=== PATIENT | male | born 1960 | race Caucasian/White ===

== ENCOUNTER 2018-03-18 05:30 | Inpatient (IN) | payer OTHER ==
[2018-03-12 09:13] LABS: HEMOGLOBIN 14.6 gm/dL (14.0-18.0); MCH 31.1 pg (26.0-34.0); MCHC 34.9 g/dL (28.0-37.0); MCV 89.1 fL (80.0-100.0); RBC 4.71 mil/uL (4.50-6.00); RDW 12.4 % (10.5-14.5); WBC 4.7 thou/uL (4.0-11.0)
[2018-03-12 09:24] LABS: ALBUMIN 4.5 g/dL (3.4-5.0); CALCIUM 9.7 mg/dL (8.5-10.1); CREATININE 0.9 mg/dL (0.7-1.3); POTASSIUM 3.9 mmol/L (3.5-5.1)
[2018-03-12 09:26] LABS: PROTIME 10.5 Seconds (9.3-11.4)
[2018-03-12 09:40] LABS: URINE BILIRUBIN NEGATIVE (Negative); URINE BLOOD NEGATIVE (Negative); URINE CLARITY CLEAR; URINE COLOR YELLOW; URINE GLUCOSE-RANDOM* NEGATIVE (Negative); URINE KETONES NEGATIVE (Negative); URINE LEUKOCYTES-REFLEX NEGATIVE (Negative); URINE NITRITE-REFLEX NEGATIVE (Negative); URINE PROTEIN (DIPSTICK) NEGATIVE (Negative); URINE UROBILINOGEN 0.2 E.U./dl (0.2-1.0)
[~2018-03-18] VITALS: Ht 172.7 cm; Wt 79.4 kg
[2018-03-18] VITALS (8 sets, daily range): BP systolic 102–131; BP diastolic 51–82
--- NOTE | ~2018-03-18 | D ---
[facility] [place] [address] DISCHARGE SUMMARY Name: CHARLES GARCIA Room #: 408-P [facility] IN ..#: [id number] Admission: 03/18/18 Attend Phys: Charles Pena MD Discharge: 03/20/18 Date of : 60 Report #: [id number] THIS REPORT FOR: //name// CC: LIN Pena [facility] unknown DATE OF SERVICE: 03/21/2018 ANTICIPATED DATE OF DISCHARGE: 03/21/2018 FINAL DIAGNOSIS: Osteoarthritis of left hip with a total hip arthroplasty. OPERATION PROCEDURES: Left total hip arthroplasty. HISTORY: This slender, fit, active 57-year-old gentleman has evidence of avascular necrosis and degenerative arthritis involving the left hip. We have elected to go ahead with left total hip arthroplasty. HOSPITAL COURSE: He was admitted and taken to the operating room on 03/18/2018. He underwent left total hip arthroplasty, which he tolerated well. Postoperatively, his course has been largely unremarkable. He has had some problems with nausea and also moderate difficulty with pain management. We have had him on oxycodone which is helpful for pain, but I believe aggravates his nausea to some extent. We are trying to taper down to hydrocodone today. He has been able to tolerate a regular diet. He has started with physical therapy and is making progress. He is not yet fully independent, but I am expecting good progress today. Pending this, he states he is anxious to go home today if he feels safe and independent. If he is not quite there with regard to nausea or pain control or physical therapy, then we will plan to keep him one more night and plan discharge tomorrow. DISCHARGE MEDICATIONS: Include Bystolic 2.5 mg daily, Tambocor 50 mg daily, Imitrex 50 mg p.r.n. migraine headaches, Xarelto 10 mg daily, oxycodone 10 mg q. 4-6 hours p.r.n. severe pain, hydrocodone 10 mg q. 4-6 hours p.r.n. for ohhj-kz-sfhrelmx pain and Zofran 4 mg q. 6 hours p.r.n. for nausea. He will continue an independent exercise program and a regular diet at home. I have asked him to call me should there be any problems or questions. We can certainly delay his discharge for another 24 hours. <ELECTRONICALLY SIGNED> By: Charles Pena MD 03/22/18 0712 [id number] Charles Pena MD /nt
--- NOTE | ~2018-03-18 | O ---
[facility] [place] [address] OPERATIVE REPORT Name: GENEVA GARCIA Room #: 408-P [facility] IN ..#: [id number] Admission: 03/18/18 Attend Phys: Geneva Pena MD Discharge: Date of : 60 Report #: [id number] THIS REPORT FOR: //name// CC: LIN Pena [facility] unknown DATE OF SERVICE: 03/18/2018 PREOPERATIVE DIAGNOSES: Avascular necrosis and end-stage degenerative arthritis, left hip. POSTOPERATIVE DIAGNOSES: Avascular necrosis and end-stage degenerative arthritis, left hip. PROCEDURE: Left total hip arthroplasty. INDICATIONS: This slender, active, fit 57-year-old gentleman has developed apparent AVN and secondary degenerative arthritis involving the left hip. He has tried conservative measures without benefit. He now has significant joint space narrowing and deformity of the femoral head and has elected to go ahead with total hip arthroplasty. DESCRIPTION OF PROCEDURE: The patient was taken to the operating room where he was placed under general anesthesia. Prophylactic intravenous antibiotics were administered. He was turned to the right lateral decubitus position. The left hip, thigh and leg were meticulously prepped and draped. A slightly curving posterolateral skin incision was made centered over the greater trochanter. This was carried through subcutaneous tissues and fascia. The posterior aspect of the hip joint was visualized, and the short external rotators were taken down and tagged with several #1 Tevdek sutures. The capsule was also preserved and tagged. The hip was dislocated. Marked deformity and degenerative change on the femoral head was noted. A femoral neck osteotomy was performed. The canal was then opened with reamers and hand broaches. The Thompson and Nephew hip system was utilized, and a size 13 femoral component using the Synergy porous component fit nicely. The calcar was trimmed down to an appropriate level. The trial broach was removed and attention directed to the acetabulum. The acetabulum was sequentially reamed, gradually advancing to a 52 mm reamer. A 52 mm 3-hole hemispherical StikTite shell was then inserted. This was placed in alignment with his true acetabulum, which positioned this in about 20 degrees of anteversion and about 45 degrees off vertical. The shell was impacted into position, and it seated nicely and appeared to be secure. In addition, 2 cancellous screws were placed through the apex of the shell, engaging good periacetabular bone adding to secure fixation. A 36-mm polyethylene insert was then placed using the 20-degree elevated rim component. This was positioned with the elevated rim at about the 10-11 o'clock posterior position. It seated [address] [address] OPERATIVE REPORT Name: GENEVA GARCIA Room #: 408-P [facility] IN ..#: [id number] Admission: 03/18/18 Attend Phys: Geneva Pena MD Discharge: Date of : 60 Report #: [id number] nicely and appeared to be secure. The permanent Thompson and Nephew Synergy porous high offset femoral component was then inserted. This was impacted into the canal in about 15-20 degrees of anteversion. It seated nicely and appeared to be secure. A +4 mm head was inserted as the trial reduction with this component seemed to be satisfactory with good amish of leg length and good range of motion and stability. The permanent head was selected using the Oxinium 36 mm x +4 mm neck length head. This was impacted on the Thorne taper and seated nicely, and the hip was reduced. Range of motion, alignment and stability were once again assessed and felt to be satisfactory. Leg length was symmetric with the opposite side. The wound was copiously irrigated. Good hemostasis was established. The short external rotators were reattached to the bone of the greater trochanter using the #1 Tevdek sutures passed through small drill holes in the greater trochanter. During this process, one of the small drill bits broke leaving a small tip of the drill bit in the trochanter. This was buried within the bone and could not be palpated on either side. I attempted to curette the area open and remove the small fractured tip, but felt this would probably cause more damage to the trochanter than benefit. Therefore, this small fragment of drill tip was left in place. The sutures were tied down, and this resulted in excellent additional stability of the hip. Range of motion was once again assessed and felt to be satisfactory. A single Hemovac was left the wound exiting through a separate stab incision. The fascia was then closed with multiple #1 Vicryl sutures. The subcutaneous tissues were closed with 0 Monocryl. The skin was closed with skin wm. A sterile dressing was applied. The patient was awakened and returned to recovery room in good condition. Estimated blood loss was 50 mL. <ELECTRONICALLY SIGNED> By: Geneva Pena MD 03/19/18 [id number] Geneva Pena MD /nt
[~2018-03-18 05:30] MED LIST: ASPIR 8181 M1 PO; BYSTOLIC2.5 MG PO; CENTRUM SILVER1 EAC2 PO; FLECAINIDE ACET50 M1 PO; IBUPROFEN 800800 M1 PO; IMITREX 50 MG T50 MG PO
[2018-03-19] VITALS: BP 131/66
[2018-03-19 03:24] VITALS: BP 121/65
[2018-03-19 04:54] LABS: HEMATOCRIT 34.7 % (42.0-52.0); HEMOGLOBIN 12.2 gm/dL (14.0-18.0); MCH 31.1 pg (26.0-34.0); RBC 3.9 mil/uL (4.50-6.00); RDW 12.7 % (10.5-14.5); WBC 10.5 thou/uL (4.0-11.0)
[2018-03-19 08:10] VITALS: BP 116/53
[2018-03-19 15:24] VITALS: BP 103/57
[2018-03-19 19:17] VITALS: BP 103/57
[2018-03-19 20:00] VITALS: BP 112/52
[2018-03-20 03:36] VITALS: BP 110/55
[2018-03-20 05:52] LABS: HEMATOCRIT 33.4 % (42.0-52.0); HEMOGLOBIN 11.6 gm/dL (14.0-18.0); MCH 31.4 pg (26.0-34.0); MCHC 34.7 g/dL (28.0-37.0); MCV 90.3 fL (80.0-100.0); RBC 3.7 mil/uL (4.50-6.00); RDW 12.8 % (10.5-14.5); WBC 8.1 thou/uL (4.0-11.0)
[2018-03-20 07:35] VITALS: BP 108/54
[2018-03-20 10:16] VITALS: BP 103/57
[2018-03-20 11:40] VITALS: BP 103/57
[2018-03-20 13:06] VITALS: BP 103/57
== END 2018-03-20 13:58 | disposition home health service (06) | DRG 470 ==
LOC: TBA 05:30 → 4N 05:30 → PRE 05:36 → 4N 10:52 → PRE 11:03 → ENTRNSPT 03-20 13:44 → EDTRNSPTSTS 03-20 13:45 → 4N 03-20 13:58
PROVIDERS: Orthopaedic Surgery
PROC: 0SRB06Z Replacement of Left Hip Joint with Oxidized Zirconium on Polyethylene Synthetic Substitute, Open Approach (ICD-10-PCS; principal; 2018-03-18)
DX: M16.12 Unilateral primary osteoarthritis, left hip (principal); M87.852 Other osteonecrosis, left femur; I48.91 Unspecified atrial fibrillation; G43.909 Migraine, unspecified, not intractable, without status migrainosus; E78.5 Hyperlipidemia, unspecified; Z79.899 Other long term (current) drug therapy
CPT/HCPCS: 10790; 50010; 50101; 50382; 50414; 51412; 51771; 53000; 53368; 56521; 56525; 56527; 56805; 62110; 62900; 70005